=== PATIENT | female | born 1945 | race Caucasian/White ===

== ENCOUNTER → 2024-04-11 11:31 | Outpatient (CLI) | payer MEDICARE, SELFPAY ==
--- NOTE | 2024-04-11 11:37 | DI.US.S_ITS ---
PROCEDURE: US EXTREMELY NONVASC UPPER RT INDICATIONS: PAIN OF RIGHT THUMB TECHNIQUE: Real-time scanning was performed of the right thumb, with image documentation. COMPARISON: [facility], CR, XR FINGER(S) RIGHT, 04/08/2024, 14:52. FINDINGS: Focused ultrasound examination over volar aspect of right hand at base of 1st metacarpal bone shows a round hypoechoic structure measures 5 x 4 x 5 millimeter in size with internal arterial flow within the right thumb subcutaneous soft tissue. No other solid mass or fluid collection is seen. IMPRESSION: 5 x 4 x 5 millimeter hypoechoic lesion in soft tissue over volar aspect of 1st metacarpal base with internal arterial type flow. Finding may represent vascular malformation versus other type of soft tissue neoplasm. Dictated by: Nolan Ji M.D. on 04/11/2024 at 19:58 Approved by: Nolan Ji M.D. on 04/11/2024 at 20:19
== END ==
PROVIDERS: Referring Provider Orthopaedic Surgery; Visit Provider Orthopaedic Surgery
DX: M79.644 Pain in right finger(s) (principal); M25.841 Other specified joint disorders, right hand
CPT/HCPCS: 76882